=== PATIENT | male | born 1980 | race Caucasian/White ===

== ENCOUNTER 2017-10-20 09:49 | Emergency (ER) | payer BC ==
[2017-10-20 10:11] VITALS: BP 165/112
[2017-10-20] MEDS ORDERED: Ketorolac INJ* 30 MG/ML 1 ML VIAL IV PUSH ONE (11:16)
--- NOTE | 2017-10-20 11:49 | RAD ---
Indication: LEFT knee swelling without known injury. Pain since Friday. Comparison: No relevant prior exams available on the [facility] [place] PACS for comparison. Technique: AP and lateral views LEFT knee. Report: Normal articular alignment. Mild osteophytosis without significant joint space narrowing. No fracture evident. Small to moderate joint effusion and anterior soft tissue swelling. No conspicuous foreign body or subcutaneous emphysema evident. IMPRESSION: 1. Kellgren and Holland grade 1 osteoarthritis. 2. Small to moderate joint effusion and anterior soft tissue swelling.
[2017-10-20 11:50] LABS: ABS Basophils 0 10^3/ul (0-0.2); ABS Eosinophils 0.1 10^3/ul (0-0.6); ABS Lymphocytes 1.5 10^3/ul (1.0-4.8); ABS Monocytes 0.7 10^3/ul (0-0.8); ABS Neutrophils 5.2 10^3/ul (1.5-7.7); ABS Nucleated RBC 0 10^3/ul; Eosinophil % 1.1 % (0-6); Hematocrit 39 % (42-52); Hemoglobin 13.9 g/dl (14.0-18.0); Lymphocyte % 19.9 % (25-47); Mean Corpuscular HGB Conc 36 g/dl (31-36); Mean Corpuscular Hemoglobin 30 pg (27-31); Mean Corpuscular Volume 85 fL (80-94); Mean Platelet Volume 8.1 um3 (7.4-10.4); Nucleated Red Blood Cells % 0; Platelet Count 225 10^3/ul (150-450); Red Blood Count 4.62 10^6/ul (4.0-5.4); Red Cell Distribution Width 13 % (10.5-15); White Blood Count 7.5 10^3/ul (3.5-10.8)
[2017-10-20 12:06] LABS: EGFR Non-African American 96.7 (>60)
--- NOTE | 2017-10-20 12:15 | ED ---
Lower Extremity - HPI Summary HPI Summary: Patient is 36-year-old male with a history of left knee swelling presenting to the ED for same. He states the initial swelling began 4 years ago and he was seen at [place] ED. After series of tests did not show anything they ended up aspirating the joint, and per patient, also did not find anything diagnostic. Denies any erythema, warmth to the area. He is in severe distress on arrival endorses a tendinitis 10 pain to the left knee. He states he stayed in the hospital for approximately 4 days and they diagnosed him with gout. - History of Current Complaint Chief Complaint: EDExtremityLower Stated Complaint: LT KNEE PAIN Time Seen by Provider: 10/20/17 09:59 Hx Obtained From: Patient Mechanism Of Injury: Unknown Onset of Pain: Immediate Onset/Duration: Hours Severity Initially: Severe Severity Currently: Severe Pain Intensity: 7 Pain Scale Used: 0-10 Numeric Timing: Constant Location: Is Discrete @ - left knee Character Of Pain: Aching Associated Signs And Symptoms: Positive: Swelling, Knee Pain. Negative: Redness , Bruising, Fever, Weakness, Dizziness, Syncope, Abdominal Pain Aggravating Factor(s): Standing, Ambulation Alleviating Factor(s): Rest Able to Bear Weight: No - Risk Factors Gout Risk Factors: Male, Obesity DVT Risk Factors: Negative Septic Arthritis Risk Factor: Negative - Allergies/Home Medications Allergies/Adverse Reactions: Allergies Allergy/AdvReac Type Severity Reaction Status Date / Time No Known Allergies Allergy Verified 10/20/17 10:07 PMH/Surg Hx/FS Hx/Imm Hx Previously Healthy: Yes Endocrine/Hematology History: Denies: Hx Diabetes, Hx Thyroid Disease Cardiovascular History: Denies: Hx Hypertension Respiratory History: Denies: Hx Asthma, Hx Chronic Obstructive Pulmonary Disease (COPD) GI History: Denies: Hx Ulcer Infectious Disease History: No Infectious Disease History: Denies: Hx Hepatitis, Hx Human Immunodeficiency Virus (HIV), Traveled Outside the [place] in Last 30 Days - Family History Known Family History: Positive: Hypertension - Social History Occupation: Employed Full-time Lives: With Family Alcohol Use: Occasionally Hx Substance Use: No Substance Use Type: Reports: None Hx Tobacco Use: Yes Smoking Status (MU): Former Smoker Type: Cigarettes Amount Used/How Often: 1/2 PK DAILY Have You Smoked in the Last Year: Yes Review of Systems Constitutional: Negative Eyes: Negative Cardiovascular: Negative Respiratory: Negative Positive: no symptoms reported, see HPI - Musculoskeletal: Negative Positive: Other - left knee swelling Neurological: Negative All Other Systems Reviewed And Are Negative: Yes Physical Exam Triage Information Reviewed: Yes Vital Signs On Initial Exam: Initial Vitals Temp Pulse Resp BP Pulse Ox 98.2 F 80 20 165/112 98 10/20/17 10:07 10/20/17 10:07 10/20/17 10:07 10/20/17 10:07 10/20/17 10:07 Vital Signs Reviewed: Yes Appearance: Positive: Well-Appearing, Well-Nourished Skin: Positive: Skin Color Reflects Adequate Perfusion, Other - left knee swelling without erythema or warmth - exquisitely tender Head/Face: Positive: Normal Head/Face Inspection Eyes: Positive: EOMI, KRISTIAN, Conjunctiva Clear Neck: Positive: Supple, No Lymphadenopathy Respiratory/Lung Sounds: Positive: Clear to Auscultation, Breath Sounds Present Cardiovascular: Positive: RRR, Pulses are Symmetrical in both Upper and Lower Extremities Musculoskeletal: Positive: Other - straight leg raise + Neurological: Positive: Speech Normal Psychiatric: Positive: Normal, Affect/Mood Appropriate AVPU Assessment: Alert Diagnostics - Vital Signs Vital Signs Temp Pulse Resp BP Pulse Ox 10/20/17 10:07 98.2 F 80 20 165/112 98 - Laboratory Lab Results: Lab Results 10/20/17 10/20/17 Range/Units 11:34 11:34 WBC 7.5 (3.5-10.8) 10^3/ul RBC 4.62 (4.0-5.4) 10^6/ul Hgb 13.9 L (14.0-18.0) g/dl Hct 39 L (42-52) % MCV 85 (80-94) fL MCH 30 (27-31) pg MCHC 36 (31-36) g/dl RDW 13 (10.5-15) % Plt Count 225 (150-450) 10^3/ul MPV 8.1 (7.4-10.4) um3 Neut % (Auto) 69.4 (38-83) % Lymph % (Auto) 19.9 L (25-47) % [place] % (Auto) 9.0 H (0-7) % Eos % (Auto) 1.1 (0-6) % Baso % (Auto) 0.6 (0-2) % Absolute Neuts (auto) 5.2 (1.5-7.7) 10^3/ul Absolute Lymphs (auto) 1.5 (1.0-4.8) 10^3/ul Absolute Monos (auto) 0.7 (0-0.8) 10^3/ul Absolute Eos (auto) 0.1 (0-0.6) 10^3/ul Absolute Basos (auto) 0 (0-0.2) 10^3/ul Absolute Nucleated RBC 0 10^3/ul Nucleated RBC % 0 ESR Pending Sodium 140 (139-145) mmol/L Potassium 3.8 (3.5-5.0) mmol/L Chloride 107 (101-111) mmol/L Carbon Dioxide 25 (22-32) mmol/L Anion Gap 8 (2-11) mmol/L BUN 12 (6-24) mg/dL Creatinine 0.89 (0.67-1.17) mg/dL Est GFR ( Amer) 124.4 (>60) Est GFR (Non-Af Amer) 96.7 (>60) BUN/Creatinine Ratio 13.5 (8-20) Glucose 107 H (70-100) mg/dL Calcium 8.9 (8.6-10.3) mg/dL Total Bilirubin 0.50 (0.2-1.0) mg/dL AST 30 (13-39) U/L ALT 27 (7-52) U/L Alkaline Phosphatase 67 (34-104) U/L C-Reactive Protein 19.91 H (< 5.00) mg/L Total Protein 7.1 (6.4-8.9) g/dL Albumin 4.0 (3.2-5.2) g/dL Globulin 3.1 (2-4) g/dL Albumin/Globulin Ratio 1.3 (1-3) Result Diagrams: 10/20/17 11:34 10/20/17 11:34 Lab Statement: Any lab studies that have been ordered have been reviewed, and results considered in the medical decision making process. Lower Extremity Course/Dx - Course Course Of Treatment: During the course of treatment, the patient is evaluated for left anterior lateral knee effusion without erythema or warmth. Exquisitely tender on palpation. Obtained records from [facility] from his previous stay in 2011. This appears to be similar symptoms. I discussed the case with Dr. Angel who agrees to see him in her office. He was subsequently diagnosed with gout after leaving [place] ED in 2011 despite an elevated white count and numerous antibiotics. I believe he has a gout flareup at this time. He denies any alcohol use but states he eats a lot of red meat and has a gross salt intake. He is encouraged a low purine diet and information on gout is given to him. Colchicine tapering dose with a 1.2 mg dose in the ED and a subsequent 0.6 mg dose and 1 hour to begin the loading dose of the colchicine is started on this date. CRP is 19.91, sedimentation rate 41 white count is normal. He is afebrile and others vital signs are stable. While in the ED he is given Toradol 60 mg IM with good effect. - Diagnoses Provider Diagnoses: Gout attack - Physician Notifications Discussed Care Of Patient With: Radha Angel Instructed by Provider To: Other - Patient will be seen in office as outpatient Discharge - Sign-Out/Discharge Documenting (check all that apply): Discharge/Admit/Transfer - Discharge Plan Condition: Stable Disposition: HOME Prescriptions: Colchicine* [Colcrys*] 0.6 mg PO DAILY #6 tab Colchicine* [Colcrys*] 0.6 mg PO DAILY #6 tab Patient Education Materials: Low Purine Diet (ED), Gout (ED) Forms: *Work Release Referrals: Radha Angel MD [Medical Doctor] - No Primary Care Phys,NOPCP [Primary Care Provider] - Additional Instructions: Follow up with Dr. Angel Take 1 tab colchicine in 1 hour (approximately 3 PM) Then take 1 tab twice tomorrow (10/21) morning and evening, then one tab on 10/22 , 10/23, and 10/24 in the mornings (6 tabs total) I have given you information on a low purine diet As discussed, if you develop any warmth or redness or fevers, return to the ED immediately Ice to the area will help with pain and inflammation - Billing Disposition and Condition Condition: STABLE Disposition: HOME
[2017-10-20] MEDS ORDERED: Colchicine* 0.6 MG TAB PO SCH (15:00)
[2017-10-21] MEDS ORDERED: Colchicine* 0.6 MG TAB PO SCH (09:00)
== END 2017-10-20 14:17 | disposition home or self-care (01) ==
LOC: ED 09:49
DX: M10.9 Gout, unspecified (principal); M25.562 Pain in left knee; R60.9 Edema, unspecified; Z87.891 Personal history of nicotine dependence
CPT/HCPCS: 36415; 80053; 85025; 85652; 86140; 87476; 87798; 96374; 99282; J1885

== ENCOUNTER 2017-11-20 16:30 | Emergency (ER) | payer BC ==
[2017-11-20 17:10] VITALS: BP 150/100
--- NOTE | 2017-11-20 17:36 | UC ---
Knee Pain HPI - HPI Summary HPI Summary: 36 yo WM h/o gout c/o recurrent gouty attack on his left lateral knee. Dx'd with gout recently,last gouty attack was a few months ago - History of Current Complaint Chief Complaint: UCLowerExtremity Stated Complaint: KNEE PAIN Time Seen by Provider: 11/20/17 16:51 Pain Intensity: 5 - Allergies/Home Medications Allergies/Adverse Reactions: Allergies Allergy/AdvReac Type Severity Reaction Status Date / Time No Known Allergies Allergy Verified 11/20/17 17:05 PMH/Surg Hx/FS Hx/Imm Hx - Additional Past Medical History Additional PMH: GOUT LEFT KNEE Previously Healthy: Yes - Surgical History Surgical History: None - Family History Known Family History: Positive: Hypertension - Social History Alcohol Use: None Substance Use Type: None Smoking Status (MU): Former Smoker Type: Cigarettes Amount Used/How Often: 1/2 PK DAILY Have You Smoked in the Last Year: Yes Review of Systems Constitutional: Negative Skin: Negative Eyes: Negative ENT: Negative Respiratory: Negative Cardiovascular: Negative Gastrointestinal: Negative Genitourinary: Negative Motor: Negative Neurovascular: Negative Musculoskeletal: Other: - LEFT KNEE gouty flare up Neurological: Negative Psychological: Negative All Other Systems Reviewed And Are Negative: Yes Physical Exam Triage Information Reviewed: Yes Appearance: Well-Appearing Vital Signs: Initial Vital Signs Temp 37.0 C 11/20/17 17:00 Pulse 96 11/20/17 17:00 Resp 18 11/20/17 17:00 BP 150/100 11/20/17 17:00 Pulse Ox 98 11/20/17 17:00 Vital Signs Reviewed: Yes Eye Exam: Normal ENT Exam: Normal Dental Exam: Normal Neck exam: Normal Neck: Positive: 1 Respiratory Exam: Normal Cardiovascular Exam: Normal Abdominal Exam: Normal Male Genital Exam: Positive: Erythema Musculoskeletal: Positive: Other: - moderate superio-lateral peripatellar swelling and TTP Neurological Exam: Normal Psychological Exam: Normal Skin Exam: Normal Knee Pain Course/Dx - Differential Dx/Diagnosis Provider Diagnoses: Recurrent left knee gouty flare. HTN in acute illness Discharge - Sign-Out/Discharge Documenting (check all that apply): Discharge/Admit/Transfer - Discharge Plan Condition: Stable Disposition: HOME Prescriptions: Indomethacin CAP* [Indocin CAP*] 50 mg PO TID 10 Days #30 cap Patient Education Materials: Gout (ED) Referrals: No Primary Care Phys,NOPCP [Primary Care Provider] - - Billing Disposition and Condition Condition: STABLE Disposition: HOME
== END 2017-11-20 17:42 | disposition home or self-care (01) ==
LOC: UCEAST 16:30
DX: M10.9 Gout, unspecified (principal); I10 Essential (primary) hypertension; Z87.891 Personal history of nicotine dependence
CPT/HCPCS: 99212; G0463